=== PATIENT | female | born 1935 | race Caucasian/White ===

== ENCOUNTER → 2017-08-01 | Outpatient (CLI) | payer MEDICARE, MEDICAID ==
[~2017-08-01] VITALS: Ht 157.5 cm; Wt 58.5 kg
[~2017-08-01] MED LIST: ACLI400A2 IH; ALBU8.5H3 IH; ALBU90AE PO; ALEN70TA48 PO; ATOR40TA28 PO; CYAN250014 PO; DSS100 PO; ERGO400C PO; LEVO88TA PO; METF-515 PO; MULT-1192; OMEP20 PO; SYMB8060 IH; TIOT185 IH; TRAM50TA4 PO; VALS80TA2 PO
[2017-08-01 13:09] VITALS: BP 131/64
== END | disposition home or self-care (01) ==
LOC: SRCNTR 12:39
PROVIDERS: ATTEND Internal Medicine Critical Care Medicine
DX: C73 Malignant neoplasm of thyroid gland (principal); C79.31 Secondary malignant neoplasm of brain; C78.00 Secondary malignant neoplasm of unspecified lung; J44.1 Chronic obstructive pulmonary disease with (acute) exacerbation; K21.9 Gastro-esophageal reflux disease without esophagitis; J30.9 Allergic rhinitis, unspecified; J06.9 Acute upper respiratory infection, unspecified; J38.00 Paralysis of vocal cords and larynx, unspecified
CPT/HCPCS: G0463